=== PATIENT | male | born 1970 | race Caucasian/White ===

== ENCOUNTER 2020-04-11 13:22 | Inpatient (IN) | payer MEDICARE ==
[~2020-04-11] VITALS: Ht 180.3 cm; Wt 80.5 kg
[2020-04-11] MEDS ORDERED: HALOPERIDOL 5 MG TABLET PO PRN (14:45)
[2020-04-11] MEDS ORDERED: LORazepam 2 MG/ML VIAL ONE (16:42)
[2020-04-11] MEDS ORDERED: FluPHENAZine HCL 2.5 MG/ML INJ IM ONE ×2 (16:44→16:45)
[2020-04-11] MEDS ORDERED: LORazepam 2 MG/ML VIAL IM ONE (16:45)
[2020-04-11 17:00] VITALS: BP 119/70
[2020-04-11] MEDS ORDERED: INFLUENZA VIRUS VACCINE QVS 2020-21 (6MO+)/PF 60 MCG/0.5 ML SYRINGE IM ONE (17:30)
[2020-04-11] MEDS ORDERED: PNEUMOCOCCAL VACCINE POLYVALENT 0.5 ML VIAL [PPSV23] IM ONE (17:30)
[2020-04-11] MEDS ORDERED: CloNIDine HCL 0.1 MG TABLET PO PRN (20:15)
[2020-04-11] MEDS ORDERED: IBUPROFEN 400 MG TABLET PO PRN (20:15)
[2020-04-11] MEDS ORDERED: MAG HYDROX/AL HYDROX/SIMETH ES 30 ML SUSPENSION UDCUP PO PRN (20:15)
[2020-04-11] MEDS ORDERED: DOCUSATE SODIUM 100 MG CAPSULE PO PRN (20:15)
[2020-04-11] MEDS ORDERED: MAGNESIUM HYDROXIDE SUSPENSION 30 ML UDCUP PO PRN (20:15)
[2020-04-11] MEDS ORDERED: ALBUTEROL SULFATE HFA 90 MCG/PUFF 8 GM INHALER IH PRN (20:15)
[2020-04-11] MEDS ORDERED: NICOTINE 14 MG/24 HOUR PATCH TD PRN (20:15)
[2020-04-11] MEDS ORDERED: PETROLATUM,WHITE 28 GM JELLY TP PRN (20:15)
[2020-04-11] MEDS ORDERED: LOPERAMIDE HCL 2 MG CAPSULE PO PRN (20:15)
[2020-04-11] MEDS ORDERED: ACETAMINOPHEN 325 MG TABLET PO PRN (20:15)
[2020-04-11] MEDS ORDERED: GuaiFENesin/D-METHORPHAN [SUGAR-FREE] 200-20MG/10 ML SYRUP UDCUP PO PRN (20:15)
[2020-04-11] MEDS ORDERED: ONDANSETRON HCL 4 MG TABLET PO PRN (20:15)
[2020-04-11 22:05] VITALS: BP 91/60
[2020-04-12 00:33] VITALS: BP 136/81
[2020-04-12] MEDS: LORazepam 2 MG TABLET PO PRN ×2 (06:31→18:04)
[2020-04-12] MEDS ORDERED: LOPERAMIDE HCL 2 MG CAPSULE PO PRN (07:30)
[2020-04-12] MEDS ORDERED: MAG HYDROX/AL HYDROX/SIMETH ES 30 ML SUSPENSION UDCUP PO PRN (07:30)
[2020-04-12] MEDS ORDERED: CloNIDine HCL 0.1 MG TABLET PO PRN (07:30)
[2020-04-12] MEDS ORDERED: GuaiFENesin/D-METHORPHAN [SUGAR-FREE] 200-20MG/10 ML SYRUP UDCUP PO PRN (07:30)
[2020-04-12] MEDS ORDERED: ONDANSETRON HCL 4 MG TABLET PO PRN (07:30)
[2020-04-12] MEDS ORDERED: NICOTINE 14 MG/24 HOUR PATCH TD PRN (07:30)
[2020-04-12] MEDS ORDERED: IBUPROFEN 400 MG TABLET PO PRN (07:30)
[2020-04-12] MEDS ORDERED: DOCUSATE SODIUM 100 MG CAPSULE PO PRN (07:30)
[2020-04-12] MEDS ORDERED: ACETAMINOPHEN 325 MG TABLET PO PRN (07:30)
[2020-04-12] MEDS ORDERED: ALBUTEROL SULFATE HFA 90 MCG/PUFF 8 GM INHALER IH PRN (07:30)
[2020-04-12] MEDS ORDERED: PETROLATUM,WHITE 28 GM JELLY TP PRN (07:30)
[2020-04-12] MEDS ORDERED: MAGNESIUM HYDROXIDE SUSPENSION 30 ML UDCUP PO PRN (07:30)
[2020-04-12 09:11] VITALS: BP 139/87
[2020-04-12] MEDS: BACITRACIN 28 GM OINTMENT TP SCH ×3 (09:36→18:06)
[2020-04-12] MEDS ORDERED: LORazepam 2 MG/ML VIAL ONE (11:51)
[2020-04-12] MEDS ORDERED: DiphenhydrAMINE HCL 50 MG/ML VIAL ONE (11:51)
[2020-04-12] MEDS ORDERED: FluPHENAZine HCL 2.5 MG/ML INJ IM ONE ×2 (11:53→12:15)
[2020-04-12] MEDS ORDERED: LORazepam 2 MG/ML VIAL IM ONE (12:15)
[2020-04-12] MEDS ORDERED: DiphenhydrAMINE HCL 50 MG/ML VIAL IM ONE (12:15)
[2020-04-12] MEDS: DIVALPROEX SODIUM 500 MG ER TABLET PO SCH (18:03)
[2020-04-12] MEDS: RisperiDONE 2 MG TABLET PO SCH (18:04)
[2020-04-12] MEDS ORDERED: PALIPERIDONE PALMITATE 234 MG/1.5 ML SYRINGE IM SCH (21:00)
[2020-04-13 02:57] VITALS: BP 102/59
[2020-04-13] MEDS: LORazepam 2 MG TABLET PO PRN ×2 (07:05→20:56)
[2020-04-13 08:15] LABS: BASOPHILS % (AUTO) 0.4 % (0.0-2.0); EOSINOPHILS % (AUTO) 2.1 % (1.0-6.0); HEMATOCRIT 42.5 % (41-53); LYMPHOCYTES # (AUTO) 1.7 K/uL (1.0-4.8); LYMPHOCYTES % (AUTO) 18.8 % (22.0-44.0); MEAN CORPUSCULAR HEMOGLOBIN 29.8 pg (26.0-34.0); MEAN CORPUSCULAR VOLUME 90 fL (80-100); MONOCYTES # (AUTO) 0.9 K/uL (0.1-1.0); MONOCYTES % (AUTO) 9.5 % (2.0-9.0); NEUTROPHILS # (AUTO) 6.2 K/uL (1.8-7.7); NEUTROPHILS % (AUTO) 69.2 % (40.0-70.0); PLATELET COUNT (AUTO) 295 K/uL (150-450); RED BLOOD CELL COUNT(AUTO) 4.71 MIL/uL (4.50-5.90); RED CELL DISTRIBUTION WIDTH 14.3 % (11.5-14.5)
[2020-04-13 08:32] LABS: HEMOGLOBIN A1C 5.6 % (3.8-5.6)
[2020-04-13] MEDS: RisperiDONE 2 MG TABLET PO SCH ×2 (08:35→17:22)
[2020-04-13] MEDS: DIVALPROEX SODIUM 500 MG ER TABLET PO SCH ×2 (08:35→17:22)
[2020-04-13 08:50] LABS: ALANINE AMINOTRANSFERASE 32 U/L (12-78); ALKALINE PHOSPHATASE 101 U/L (46-116); ANION GAP 7 mmol/L (8-16); ASPARTATE AMINOTRANSFERASE 37 U/L (15-37); BILIRUBIN,TOTAL 0.2 mg/dL (0.1-1.0); CALCIUM, TOTAL 8.5 mg/dL (8.8-10.5); CARBON DIOXIDE 28 mmol/L (22-29); CHLORIDE 103 mmol/L (98-107); CHOL/HDL RATIO 2.1 (4.2-7.3); CHOLESTEROL 109 mg/dL (131-200); CREATININE 0.83 mg/dL (0.60-1.30); FREE T4 (FREE THYROXINE) 0.93 ng/dL (0.76-1.46); GLOMERULAR FILTR. RATE CALC > 60 mL/min (>60); GLUCOSE,RANDOM 96 mg/dL (70-110); HDL CHOLESTEROL 52 mg/dL (40-60); LDL CHOL (CALC.) 47 mg/dL (0-130); POTASSIUM 4.3 mmol/L (3.5-5.1); SODIUM SERUM 138 mmol/L (136-145); THYROID STIMULATING HORMONE 2.87 uIU/mL (0.36-3.74); TOTAL PROTEIN, SERUM 6.7 g/dL (6.4-8.2); TRIGLYCERIDES 48 mg/dL (15-150); UREA NITROGEN, BLOOD 16 mg/dL (7-18)
[2020-04-13] MEDS: BACITRACIN 28 GM OINTMENT TP SCH ×4 (09:00→17:23)
[2020-04-13] MEDS ORDERED: QUEtiapine FUMARATE 100 MG TABLET ONE (09:28)
[2020-04-13] MEDS: QUEtiapine FUMARATE 100 MG TABLET PO PRN (09:39)
[2020-04-13] MEDS ORDERED: DiphenhydrAMINE HCL 50 MG/ML VIAL ONE (10:16)
[2020-04-13] MEDS ORDERED: LORazepam 2 MG/ML VIAL ONE (10:16)
[2020-04-13] MEDS ORDERED: FluPHENAZine HCL 2.5 MG/ML INJ IM ONE ×2 (10:19→10:45)
[2020-04-13] MEDS ORDERED: LORazepam 2 MG/ML VIAL IM ONE (10:45)
[2020-04-13] MEDS ORDERED: DiphenhydrAMINE HCL 50 MG/ML VIAL IM ONE (10:45)
[2020-04-14] MEDS ORDERED: LORazepam 2 MG/ML VIAL ONE (07:09)
[2020-04-14] MEDS ORDERED: HALOPERIDOL LACTATE 5 MG/ML VIAL ONE (07:09)
[2020-04-14] MEDS ORDERED: FluPHENAZine HCL 2.5 MG/ML INJ IM ONE (07:15)
[2020-04-14] MEDS ORDERED: LORazepam 2 MG/ML VIAL IM ONE (07:15)
[2020-04-14] MEDS ORDERED: DiphenhydrAMINE HCL 50 MG/ML VIAL IM ONE (07:15)
[2020-04-14] MEDS: BACITRACIN 28 GM OINTMENT TP SCH ×4 (10:13→17:35)
[2020-04-14] MEDS: DIVALPROEX SODIUM 500 MG ER TABLET PO SCH ×2 (10:13→16:46)
[2020-04-14] MEDS: RisperiDONE 2 MG TABLET PO SCH ×2 (10:13→16:46)
[2020-04-14] MEDS: LORazepam 2 MG TABLET PO PRN ×2 (13:24→21:40)
[2020-04-14 16:32] VITALS: BP 126/72
[2020-04-14] MEDS ORDERED: DIVA-85 PO (23:34)
[2020-04-14] MEDS ORDERED: PALI234D IM (23:34)
[2020-04-14] MEDS ORDERED: RISP2TAB45 PO (23:34)
[2020-04-15 02:30] VITALS: BP 120/81
[2020-04-15] MEDS: LORazepam 2 MG TABLET PO PRN ×3 (02:41→17:31)
[2020-04-15] MEDS: ZOLPIDEM TARTRATE 10 MG TABLET PO PRN (02:41)
[2020-04-15] MEDS: QUEtiapine FUMARATE 100 MG TABLET PO PRN ×2 (04:09→17:05)
[2020-04-15 08:05] VITALS: BP 117/72
[2020-04-15] MEDS: DIVALPROEX SODIUM 500 MG ER TABLET PO SCH ×2 (09:00→17:05)
[2020-04-15] MEDS: RisperiDONE 2 MG TABLET PO SCH ×2 (09:00→17:05)
[2020-04-15] MEDS ORDERED: LORazepam 2 MG/ML VIAL ONE (09:33)
[2020-04-15] MEDS ORDERED: DiphenhydrAMINE HCL 50 MG/ML VIAL ONE (09:34)
[2020-04-15] MEDS ORDERED: FluPHENAZine HCL 2.5 MG/ML INJ IM ONE ×2 (09:36→09:45)
[2020-04-15] MEDS: CEPHALEXIN MONOHYDRATE 500 MG CAPSULE PO SCH ×4 (09:38→20:59)
[2020-04-15] MEDS: BACITRACIN 28 GM OINTMENT TP SCH ×4 (09:39→17:05)
[2020-04-15] MEDS ORDERED: DiphenhydrAMINE HCL 50 MG/ML VIAL IM ONE (09:45)
[2020-04-15] MEDS ORDERED: LORazepam 2 MG/ML VIAL IM ONE (09:45)
[2020-04-15 17:20] VITALS: BP 110/73
[2020-04-16] MEDS: QUEtiapine FUMARATE 100 MG TABLET PO PRN ×4 (04:00→17:03)
[2020-04-16] MEDS: LORazepam 2 MG TABLET PO PRN ×4 (04:00→17:04)
[2020-04-16 04:46] VITALS: BP 114/63
[2020-04-16] MEDS: RisperiDONE 2 MG TABLET PO SCH ×2 (08:55→17:04)
[2020-04-16] MEDS: DIVALPROEX SODIUM 500 MG ER TABLET PO SCH ×2 (08:55→17:03)
[2020-04-16] MEDS: CEPHALEXIN MONOHYDRATE 500 MG CAPSULE PO SCH ×4 (08:55→20:53)
[2020-04-16] MEDS: BACITRACIN 28 GM OINTMENT TP SCH ×4 (09:00→17:04)
[2020-04-16 13:37] VITALS: BP 110/68
[2020-04-16 16:29] VITALS: BP 103/62
[2020-04-16] MEDS: ZOLPIDEM TARTRATE 10 MG TABLET PO PRN (21:28)
[2020-04-17 00:08] VITALS: BP 108/61
[2020-04-17 08:19] VITALS: BP 124/76
[2020-04-17] MEDS: RisperiDONE 2 MG TABLET PO SCH ×2 (09:29→17:56)
[2020-04-17] MEDS: CEPHALEXIN MONOHYDRATE 500 MG CAPSULE PO SCH ×4 (09:29→20:58)
[2020-04-17] MEDS: DIVALPROEX SODIUM 500 MG ER TABLET PO SCH ×2 (09:30→17:56)
[2020-04-17] MEDS: LORazepam 2 MG TABLET PO PRN ×2 (09:30→17:56)
[2020-04-17] MEDS: BACITRACIN 28 GM OINTMENT TP SCH ×4 (09:30→19:00)
[2020-04-17] MEDS: QUEtiapine FUMARATE 100 MG TABLET PO PRN (10:19)
[2020-04-17 16:40] VITALS: BP 122/67
[2020-04-17] MEDS: ZOLPIDEM TARTRATE 10 MG TABLET PO PRN (21:02)
[2020-04-18 03:00] VITALS: BP 109/67
[2020-04-18] MEDS: CEPHALEXIN MONOHYDRATE 500 MG CAPSULE PO SCH ×4 (08:15→21:04)
[2020-04-18] MEDS: RisperiDONE 2 MG TABLET PO SCH ×2 (08:15→17:06)
[2020-04-18] MEDS: DIVALPROEX SODIUM 500 MG ER TABLET PO SCH ×2 (08:15→17:05)
[2020-04-18] MEDS: BACITRACIN 28 GM OINTMENT TP SCH ×4 (08:20→17:06)
[2020-04-18] MEDS: LORazepam 2 MG TABLET PO PRN ×3 (08:25→17:06)
[2020-04-18 08:35] VITALS: BP 140/65
[2020-04-18 16:23] VITALS: BP 127/87
[2020-04-18] MEDS: QUEtiapine FUMARATE 100 MG TABLET PO PRN (17:06)
[2020-04-19 05:29] VITALS: BP 110/66
[2020-04-19] MEDS: QUEtiapine FUMARATE 100 MG TABLET PO PRN ×3 (05:31→17:05)
[2020-04-19] MEDS: LORazepam 2 MG TABLET PO PRN ×3 (05:31→17:05)
[2020-04-19] MEDS: DIVALPROEX SODIUM 500 MG ER TABLET PO SCH (08:56)
[2020-04-19] MEDS: BACITRACIN 28 GM OINTMENT TP SCH ×4 (08:56→17:05)
[2020-04-19] MEDS: RisperiDONE 2 MG TABLET PO SCH ×2 (08:56→17:05)
[2020-04-19] MEDS: CEPHALEXIN MONOHYDRATE 500 MG CAPSULE PO SCH ×4 (08:56→20:29)
[2020-04-19 12:55] VITALS: BP 109/67
[2020-04-19] MEDS ORDERED: FluPHENAZine HCL 2.5 MG/ML INJ IM ONE ×2 (14:36→14:45)
[2020-04-19] MEDS ORDERED: LORazepam 2 MG/ML VIAL ONE (14:37)
[2020-04-19] MEDS ORDERED: LORazepam 2 MG/ML VIAL IM ONE (14:45)
[2020-04-20 08:31] VITALS: BP 132/74
[2020-04-20] MEDS: LORazepam 2 MG TABLET PO PRN ×3 (08:40→17:03)
[2020-04-20] MEDS: QUEtiapine FUMARATE 100 MG TABLET PO PRN ×3 (08:41→17:03)
[2020-04-20] MEDS: CEPHALEXIN MONOHYDRATE 500 MG CAPSULE PO SCH ×4 (08:41→20:49)
[2020-04-20] MEDS: DIVALPROEX SODIUM 500 MG ER TABLET PO SCH ×2 (08:41→20:49)
[2020-04-20] MEDS: RisperiDONE 2 MG TABLET PO SCH ×2 (08:41→17:01)
[2020-04-20] MEDS: BACITRACIN 28 GM OINTMENT TP SCH ×4 (08:41→17:03)
[2020-04-20] MEDS ORDERED: DIVA-80 PO (12:20)
[2020-04-20 16:05] VITALS: BP 114/67
[2020-04-21] MEDS ORDERED: LORazepam 2 MG/ML VIAL ONE (06:43)
[2020-04-21] MEDS ORDERED: DiphenhydrAMINE HCL 50 MG/ML VIAL ONE (06:44)
[2020-04-21] MEDS ORDERED: FluPHENAZine HCL 2.5 MG/ML INJ IM ONE ×2 (06:48→07:00)
[2020-04-21] MEDS ORDERED: DiphenhydrAMINE HCL 50 MG/ML VIAL IM ONE (07:00)
[2020-04-21] MEDS ORDERED: LORazepam 2 MG/ML VIAL IM ONE (07:00)
[2020-04-21] MEDS: CEPHALEXIN MONOHYDRATE 500 MG CAPSULE PO SCH ×4 (08:06→20:45)
[2020-04-21] MEDS: BACITRACIN 28 GM OINTMENT TP SCH ×4 (08:06→17:00)
[2020-04-21] MEDS: NICOTINE POLACRILEX 2 MG LOZENGE PO PRN (08:06)
[2020-04-21] MEDS: DIVALPROEX SODIUM 500 MG ER TABLET PO SCH ×2 (08:06→20:46)
[2020-04-21] MEDS: RisperiDONE 2 MG TABLET PO SCH ×2 (08:06→16:45)
[2020-04-21 08:32] VITALS: BP 132/78
[2020-04-21] MEDS: LORazepam 2 MG TABLET PO PRN (12:40)
[2020-04-21 16:07] VITALS: BP 109/59
[2020-04-21] MEDS: QUEtiapine FUMARATE 100 MG TABLET PO PRN (16:45)
[2020-04-22 03:25] VITALS: BP 127/60
[2020-04-22] MEDS: QUEtiapine FUMARATE 100 MG TABLET PO PRN ×3 (04:03→16:36)
[2020-04-22] MEDS: LORazepam 2 MG TABLET PO PRN ×2 (04:33→10:10)
[2020-04-22 08:20] VITALS: BP 109/62
[2020-04-22] MEDS: DIVALPROEX SODIUM 500 MG ER TABLET PO SCH ×2 (10:09→20:40)
[2020-04-22] MEDS: RisperiDONE 2 MG TABLET PO SCH ×2 (10:10→16:36)
[2020-04-22] MEDS: BACITRACIN 28 GM OINTMENT TP SCH (10:11)
[2020-04-22] MEDS: NICOTINE POLACRILEX 2 MG LOZENGE PO PRN (11:41)
[2020-04-22 16:21] VITALS: BP 136/78
[2020-04-23 00:42] VITALS: BP 109/59
[2020-04-23 08:25] VITALS: BP 125/82
[2020-04-23] MEDS: QUEtiapine FUMARATE 100 MG TABLET PO PRN (09:43)
[2020-04-23] MEDS: DIVALPROEX SODIUM 500 MG ER TABLET PO SCH (09:43)
[2020-04-23] MEDS: LORazepam 2 MG TABLET PO PRN (09:43)
[2020-04-23] MEDS: RisperiDONE 2 MG TABLET PO SCH (09:43)
== END 2020-04-23 14:00 | disposition home or self-care (01) | DRG 885 ==
LOC: B3A 17:02
PROVIDERS: ADMIT Psychiatry & Neurology Child & Adolescent Psychiatry; ATTEND Psychiatry & Neurology Child & Adolescent Psychiatry
DX: F20.9 Schizophrenia, unspecified (principal); F12.90 Cannabis use, unspecified, uncomplicated; F41.9 Anxiety disorder, unspecified; I95.9 Hypotension, unspecified; Z59.0 Homelessness; Z28.21 Immunization not carried out because of patient refusal
CPT/HCPCS: 83036; 84436; 84439; 84443; 86592; 90686; A9575; J1200; J1630; J2060; J3490

== ENCOUNTER 2020-04-14 22:42 | Emergency (ER) | payer MEDICARE ==
[~2020-04-14] VITALS: Ht 180.3 cm; Wt 79.5 kg
[2020-04-14] MEDS ORDERED: RISP2TAB45 PO (23:34)
[2020-04-14] MEDS ORDERED: DIVA-85 PO (23:34)
[2020-04-14] MEDS ORDERED: PALI234D IM (23:34)
[2020-04-14] MEDS ORDERED: CEPHALEXIN MONOHYDRATE 500 MG CAPSULE PO ONE (23:45)
[2020-04-15 00:30] VITALS: BP 123/68
== END 2020-04-15 02:00 | disposition home or self-care (01) ==
LOC: EMS 22:50
DX: M79.644 Pain in right finger(s) (principal); L08.9 Local infection of the skin and subcutaneous tissue, unspecified; Z88.8 Allergy status to other drugs, medicaments and biological substances